=== PATIENT | female | born 1960 | race Caucasian/White ===

== ENCOUNTER 2017-07-31 19:39 | Emergency (ER) | payer OTHER ==
[2017-07-31] MEDS: OXYCODONE/ACETAMINOPHEN (5/325) TAB PO (21:40)
== END 2017-07-31 23:18 | disposition home or self-care (01) ==
LOC: FTE 19:39
DX: S20.212A Contusion of left front wall of thorax, initial encounter (principal); M25.561 Pain in right knee; E11.9 Type 2 diabetes mellitus without complications; F17.210 Nicotine dependence, cigarettes, uncomplicated; W05.0XXA Fall from non-moving wheelchair, initial encounter; Y92.9 Unspecified place or not applicable; Z79.84 Long term (current) use of oral hypoglycemic drugs
CPT/HCPCS: 71100; 73562-50; 99284-25

== ENCOUNTER → 2018-08-20 | Emergency (ER) | payer OTHER ==
[~2018-08-20] MED LIST: KETOROLAC 15 MG INJ IM
[2018-08-20] MEDS: HYDROCODONE/APAP (5/325) TAB PO ×2 (18:34)
== END | disposition home or self-care (01) ==
LOC: FTE 14:58
DX: M54.5 Low back pain (principal); E11.9 Type 2 diabetes mellitus without complications; Z79.84 Long term (current) use of oral hypoglycemic drugs; Z87.891 Personal history of nicotine dependence
CPT/HCPCS: 72100; 99283-25